=== PATIENT | male | born 1995 | race Hispanic/Latino ===

== ENCOUNTER 2024-02-08 11:01 | Emergency (ER) | payer OTHER ==
[~2024-02-08] VITALS: Ht 170.2 cm; Wt 54.0 kg
[2024-02-08 13:27] VITALS: BP 129/76; PULSE 68; RESP 20; O2SAT 100
[2024-02-08] MEDS ORDERED: NAPR275T96 PO (14:12)
== END 2024-02-08 14:23 ==
LOC: EDH 11:01 → EEVIPCON 11:01 → EDH 14:23
DX: S00.12XA Contusion of left eyelid and periocular area, initial encounter (principal); S00.83XA Contusion of other part of head, initial encounter; F41.9 Anxiety disorder, unspecified; F32.A Depression, unspecified; Y08.89XA Assault by other specified means, initial encounter; Y93.89 Activity, other specified; Y92.89 Other specified places as the place of occurrence of the external cause; Y99.8 Other external cause status
CPT/HCPCS: 70450; 71250; 72125; 74176